=== PATIENT | male | born 1970 | race Two or more races ===

== ENCOUNTER 2024-07-25 15:37 | Emergency (ER) | payer MEDICAID, SELFPAY ==
[2024-07-25 15:55] VITALS: BP 106/74; PULSE 71; RESP 18; TEMP 36.6; O2SAT 95; BMI 36.2
--- NOTE | 2024-07-25 16:06 | PD.EDRME ---
Rapid Medical Screening Exam RME Arrival date/time: 07/25/24 15:37 53-year-old male presents to the emergency department today for complaint of elevated blood sugar and generalized fatigue Chief Complaint: Recheck/Abnormal Lab/Rx Vital signs: Vital Signs Temperature 97.8 F 07/25/24 15:55 Pulse Rate 71 07/25/24 15:55 Respiratory Rate 18 07/25/24 15:55 Blood Pressure 106/74 07/25/24 15:55 Pulse Oximetry (%) 95 07/25/24 15:55 Oxygen Delivery Method Room Air 07/25/24 15:55
[2024-07-25 16:41] LABS: Collection Type, Urine Clean Catch; Squamous Epithelial Cell,Urine 0 /hpf (0-5)
[2024-07-25 16:45] LABS: Base Excess, Venous 5 (-3-3); O2 Saturation, Venous 58 % (96-97); PCO2, Venous 44 mmHg (36-56); PO2, Venous 28 mmHg (15-58); pH, Venous 7.44 (7.33-7.66)
[2024-07-25 16:48] LABS: Basophils % (Auto) 0 % (0-2.5); Eosinophils % (Auto) 0 % (0-10); Hematocrit 47.4 % (41.0-53.0); Hemoglobin 15.4 g/dL (13.5-16.0); Immature Granulocytes % (Auto) 0 % (0-0); Immature Granulocytes Auto 0.05 Thou/mm3 (0.00-0.00); Lymphocytes # (Auto) 1.5 Thou/mm3 (1.0-4.8); Lymphocytes % (Auto) 12 % (10-50); Mean Corpuscular HGB Conc 32.5 g/dl (31.0-37.0); Mean Corpuscular Hemoglobin 27.8 pg (25.0-35.0); Mean Corpuscular Volume 86 fL (80-100); Monocytes # (Auto) 0.8 Thou/mm3 (0.0-0.8); Monocytes % (Auto) 7 % (0-12); Neutrophils # (Auto) 9.4 Thou/mm3 (1.8-7.7); Neutrophils % (Auto) 80 % (37-80); Nucleated Red Blood Cell % 0 /100 WBC (0); Platelet Count 181 Thou/mm3 (140-440); RDW Standard Deviation 48.1 fL (35.1-43.9); Red Blood Count 5.54 Miln/mm3 (4.50-5.90); White Blood Count 11.8 Thou/mm3 (3.8-10.6)
[2024-07-25 16:57] LABS: Glucose Estimated Average 252 mg/dL (80-131); Hemoglobin A1C 10.4 % Hgb (4.8-6.0)
[2024-07-25 17:18] LABS: Bilirubin,Urine Negative (Negative); Blood,Urine Negative (Negative); Clarity,Urine Clear (Clear/Hazy); Color,Urine Colorless (Lt Yel-Yel); Glucose, Urine 4+ (Negative); Ketones,Urine Negative (Negative); Leukocyte Esterase,Urine Negative (Negative); Nitrite,Urine Negative (Negative); PH,Urine 6.5 (5.0-7.0); Protein,Urine Negative (Neg - Trace); RBC,Urine 2 /hpf (0-3); Specific Gravity,Urine 1.034 (1.001-1.035); Urobilinogen,Urine Negative mg/dL (0.0-1.0); WBC,Urine 1 /hpf (0-5)
[2024-07-25 17:21] LABS: Alanine Aminotransferase 21 U/L (10-49); Albumin, Serum 4.5 gm/dL (3.5-5.0); Albumin/Globulin Ratio 1.7 (1.2-2.2); Alkaline Phosphatase 132 U/L (46-116); Anion Gap 8 (7-16); Aspartate Amino Transferase 13 U/L (0-34); BUN/Creatinine Ratio 8 Ratio (12-20); Bilirubin,Total 0.9 mg/dL (0.3-1.2); Blood Urea Nitrogen 13 mg/dL (9-23); Calcium 9.6 mg/dL (8.3-10.6); Calcium (Corrected) 9.6 mg/dL (8.5-10.1); Carbon Dioxide 31.1 mMol/L (20.0-31.0); Chloride 92 mMol/L (98-107); Creatinine (Component) 1.6 mg/dL (0.6-1.3); Estimated Creatinine Clearance 64.9 mL/min (>60); Globulin 2.7 gm/dL (2.3-3.5); Magnesium 2.2 mg/dL (1.6-2.6); Osmolality,Calculated 290 (275-295); Potassium 3.4 mMol/L (3.4-5.1); Sodium 131 mMol/L (136-145); Total Protein 7.2 gm/dL (5.7-8.2); Troponin I < 0.020 ng/mL (0.0-0.045); eGFR 51 See Note
[2024-07-25 17:25] LABS: Glucose 599 mg/dL (74-106)
[2024-07-25 18:15] LABS: Beta Hydroxybutyrate 0.2 mmol/L (<0.6)
--- NOTE | 2024-07-25 21:20 | PD.EDRECHK ---
ED Recheck Abnl Lab Rx-RME/HPI General Chief Complaint: Recheck/Abnormal Lab/Rx Stated Complaint: Blood sugar high, tired Time Seen by Provider: 07/25/24 18:11 Arrival date/time: 07/25/24 15:37 RME / HPI RME / HPI narrative: 53-year-old male patient with significant history of hypertension diabetes mellitus, came in for evaluation regarding elevated blood sugar. Patient's been having worsening hyperglycemia, associated with generalized body weakness, dry mouth and increase urination. Patient was started on Mounjaro 2 weeks ago and since then has been having the symptoms. Patient denies any vomiting denies any abdominal pain denies any other complaints. Patient's workup was significant for 11.8 leukocytosis, blood sugar of 599, with no sign of DKA. Related Data Home Medications ?Medication ?Instructions ?Recorded ?Confirmed hydrochlorothiazide 25 mg tablet 50 mg PO QAM #0 tabs 09/18/16 09/25/22 Held on 09/25/22. Instructions: Resume on 10/05/22. Hold until seeing primary care physician blood sugar diagnostic (True 08/19/20 08/19/20 Metrix Glucose Test Strip) amlodipine 10 mg tablet 10 mg PO QDAY 09/25/22 09/25/22 atorvastatin 40 mg tablet (Lipitor) 40 mg PO HS 09/25/22 09/25/22 axitinib 1 mg tablet (Inlyta) 1 mg PO BID 09/25/22 09/25/22 Held on 09/25/22. Instructions: Resume on 10/05/22. Please follow up with Oncology as soon as possible as this medication may be the cause of kidney injury losartan 100 mg tablet 100 mg PO QDAY 09/25/22 09/25/22 Held on 09/25/22. Instructions: Resume on 10/05/22. Hold until seeing Primary care physician metoprolol succinate 100 mg 100 mg PO QDAY 09/25/22 09/25/22 capsule sprinkle, ext. release 24 hr semaglutide 1 mg/dose (2 mg/1.5 1 mg subcut QWEEK 09/25/22 09/25/22 mL) subcutaneous pen injector ([employer] [facility]) Allergies Allergy/AdvReac Type Severity Reaction Status Date / Time Sulfa (Sulfonamide Allergy Mild Rash Verified 07/25/24 15:39 Antibiotics) Review of Systems Review of Systems Narrative Review of Systems: Review of system reviewed and within normal limits except mentioned in HPI ED Exam Narrative Physical exam: VITAL SIGNS: Reviewed. GENERAL APPEARANCE: Alert and interactive, follows commands, no acute distress, HEAD AND FACE: Non-traumatic. ENT: PERRL, pink conjunctivitis, eyelid no trauma, Mucous membrane moist. NECK: Supple, nontender, no nuchal rigidity. CHEST: No tenderness, no crepitus, no paradoxical movement, no retractions. LUNGS: Clear, well ventilated, symmetric, no rales, no wheezing, no ronchi, no stridor, good breath sounds bilaterally. HEART: Regular rate, regular rhythm, no murmur, no gallops. ABDOMEN: Soft, positive bowel sounds, nondistended, no guarding, nontender, no rebound, no masses, RECTAL: Deferred. GENITAL: Deferred. NEUROLOGICAL: Gross motor function intact sensory function intact, Appropriate for age. MUSCULOSKELETAL: low back nontender, full range of motion. EXTREMITIES: Nontender, full range of motion. SKIN: Color pink, dry, no rash, no lacerations, no abrasions, no contusions. LYMPHATICS: Deferred. Course Quality Measures none Orders Category Date Time Status Insert IV NOW Care 07/25/24 21:57 Completed A1C [Glycohemoglobin w (eAG)] Stat Lab 07/25/24 16:26 Completed Beta Hydroxybutyrate Stat Lab 07/25/24 16:26 Completed CBC Stat Lab 07/25/24 16:26 Completed Comprehensive Metabolic Panel Stat Lab 07/25/24 16:26 Completed Magnesium Stat Lab 07/25/24 16:26 Completed Troponin I Stat Lab 07/25/24 16:26 Completed Urinalysis Stat Lab 07/25/24 16:14 Completed VBG [Venous Blood Gas] Stat Lab 07/25/24 16:26 Completed Sodium Chloride 0.9% 1000 ml [Ns] 1,000 ml Med 07/25/24 20:04 Discontinued IV 999 mls/hr Sodium Chloride 0.9% 1000 ml [Ns] 1,000 ml Med 07/25/24 20:05 Discontinued IV 999 mls/hr Vital Signs Vital signs: Vital Signs Temperature 97.8 F 07/25/24 15:55 Pulse Rate 71 07/25/24 15:55 Respiratory Rate 18 07/25/24 15:55 Blood Pressure 106/74 07/25/24 15:55 Pulse Oximetry (%) 95 07/25/24 15:55 Oxygen Delivery Method Room Air 07/25/24 15:55 Recheck / Abnormal Lab / Rx MDM Narrative MDM Narrative:: 53-year-old male patient with significant history of hypertension diabetes mellitus, came in for evaluation regarding elevated blood sugar. Patient's been having worsening hyperglycemia, associated with generalized body weakness, dry mouth and increase urination. Patient was started on Mounjaro 2 weeks ago and since then has been having the symptoms. Patient denies any vomiting denies any abdominal pain denies any other complaints. Patient's CBC came back unremarkable. CMP showed blood sugar of 599 with no sign of diabetic acidosis. Creatinine 1.6. Rest of the labs unremarkable. No UTI. Patient received 2 L IV fluids, repeat blood sugar was noted to be 431 prior to discharge. Patient wanted to go home, does not want any other medication. Patient told me that he had diabetic medication at home. He is not having any symptoms prior to discharge. Patient data External records reviewed:: None Clinical information provided by:: patient Social determinants that could affect healthcare access:: none Patient has the following chronic illnesses:: Diabetes mellitus How is presenting disease/condition affected by chronic disease/condition?: exacerbated by Evaluation data The following diagnostics were reviewed and interpreted by me:: lab results and radiology exam(s) Lab and/or radiology exams considered but not ordered:: None Interpretation Summary: None Medications / Prescriptions Medications or Prescriptions considered but not ordered:: None Medication administrations:: Medication Administration History Discontinued Medications Sodium Chloride (Ns) 1,000 mls @ 999 mls/hr IV .Q1H1M ONE Stop: 07/25/24 21:04 Last Infusion: 07/25/24 22:52 Dose: Infused Documented By: Admin: 07/25/24 22:05 Dose: 999 mls/hr Documented By: BD Sodium Chloride (Ns) 1,000 mls @ 999 mls/hr IV .Q1H1M ONE Stop: 07/25/24 21:05 Last Infusion: 07/25/24 22:53 Dose: Infused Documented By: Admin: 07/25/24 22:05 Dose: 999 mls/hr Documented By: BD IV fluids 2 L Consultations Consultation(s) initiated? (list below): No Diagnosis Recheck Differential Diagnosis: other (Dehydration, hyperglycemia, diabetic ketoacidosis) Most likely diagnosis given after review of the tests above:: Hyperglycemia secondary to diabetes mellitus type 2 Admission Indicated Admission indicated?: not indicated Admission Request Was there a request for admission?: No Disposition Plan Disposition Plan: Discharge Discharge Attestation Discharge Attestation: The patient and all family members were given an opportunity to ask questions and understood the discharge instructions. Discharge instructions specifically effects, indications for sooner follow up or return to the emergency department, and the expected course of current diagnosis. Patient condition: Stable Discharge Plan Plan Patient Disposition: HOME (Self Care) Discharge Disposition comment: Stable Prescriptions/Referrals Prescriptions/Med Rec: No Action hydrochlorothiazide 25 MG tablet 50 mg PO QAM Qty: 0 (DME) True Metrix Glucose Test Strip Strip Patient Comments: CHECK BLOOD SUGAR THREE TIMES DAILY FOR DIABETES Rx Instructions: test 3 times a day atorvastatin [Lipitor] 40 mg Tablet 40 mg PO HS amlodipine 10 mg Tablet 10 mg PO QDAY losartan 100 mg Tablet 100 mg PO QDAY Inlyta 1 mg Tablet 1 mg PO BID Ozempic 1 mg/dose (2 mg/1.5 mL) Pen Injector 1 mg SUBCUT QWEEK metoprolol succinate 100 mg Capsule,Sprinkle,Er 24hr 100 mg PO QDAY Referrals: Shawanda Marcelo FNP [Primary Care Provider] - In 1 week Problem List Clinical Impression: Hyperglycemia due to type 2 diabetes mellitus Patient/Caregiver Discharge Instructions Discharge Activity: activity as tolerated Education Materials: Managing Type 2 Diabetes Additional Instructions: Thank you for the opportunity for serving you today. You are stable for discharged . You are advised to: Follow-up with your PCP in 1 to 2 days Return to ED for worsening of symptoms Increase oral fluids Watch what you are eating, decrease intake of carbohydrates Print Language: Danish Stand Alone Forms: Graciela Award Info., Patient Portal Info Letter ASHLEIGH/REINA Supervising Physician MUKESH Supervising Physician: MD Valencia
[2024-07-25] MEDS: SODIUM CHLORIDE 0.9% 1000 ML 1,000 ML 999 ML IV ×2 (22:05)
== END 2024-07-25 23:50 | disposition home or self-care (01) ==
PROVIDERS: Nurse Practitioner Primary Care; Emergency Provider Emergency Medicine; PCP Student in an Organized Health Care Education/Training Program
DX: E11.65 Type 2 diabetes mellitus with hyperglycemia (principal); Z79.85 Long-term (current) use of injectable non-insulin antidiabetic drugs
CPT/HCPCS: 36415; 80053; 81001; 82010; 82803; 83036; 83735; 84484; 85025; 96360; 99284; J7030

== ENCOUNTER 2025-01-07 09:02 | Emergency (ER) | payer MEDICAID, SELFPAY ==
[2025-01-07 09:38] VITALS: BP 154/102; PULSE 75; RESP 18; TEMP 36.9; O2SAT 96; BMI 35.4
--- NOTE | 2025-01-07 09:53 | XR_ITS ---
Examination: Abdomen sonogram, Limited Date and time of exam: January 07, 2025, 1105 hours INDICATIONS: Right upper abdominal pain beginning 3 days ago Technique: Real-time ricks scale transabdominal sonographic images of the upper abdomen obtained. Findings: Normal gallbladder Normal common bile duct 0.4 cm Pancreatic head 3.4 cm Liver 16.5 cm fatty infiltration Normal hepatopetal portal venous flow Patent IVC IMPRESSION: Normal gallbladder
--- NOTE | 2025-01-07 09:53 | XR_ITS ---
Examination: CT abdomen and pelvis without contrast. Coronal 3-D reconstructions. Sagittal 2-D reconstructions. Date and time of exam: January 07, 2025, 0959 hours, comparison January 30, 2023 INDICATIONS: Onset right-sided flank pain today. CTDI: vol (mGy): 10.1 DLP: (mGycm): 657 Technique: Axial images of the abdomen have been obtained, 3 mm slice thickness Intravenous contrast material has not been administered. Low dose protocols were performed. One or more of the following dose reduction techniques were used; automated exposure control, adjustment of the mA and/or KV according to patient size, use of iterative reconstruction technique. Findings: New 5 mm pulmonary nodule right lower lobe No visualized liver or splenic lesion No gallstones No pancreatic or adrenal mass Partial left nephrectomy No solid renal mass lesion No hydronephrosis or ureteral calculi Aorta normal size Absent appendix No bowel obstruction Contracted urinary bladder Mild prostatomegaly Moderate osteopenia IMPRESSION: New 5 mm pulmonary nodule right lower lobe, recommend ELECTIVE CT chest without contrast follow-up
--- NOTE | 2025-01-07 09:54 | PD.EDRME ---
Rapid Medical Screening Exam RME Arrival date/time: 01/07/25 09:02 54-year-old male presents to the Emergency Department of complaint of abdominal pain Chief Complaint: Abdominal Pain Vital signs: Vital Signs Temperature 98.4 F 01/07/25 09:38 Pulse Rate 75 01/07/25 09:38 Respiratory Rate 18 01/07/25 09:38 Blood Pressure 154/102 H 01/07/25 09:38 Pulse Oximetry (%) 96 01/07/25 09:38 Oxygen Delivery Method Room Air 01/07/25 09:38 Vital signs reviewed by provider: Yes Exam: On exam patient well-appearing does not appear ill or toxic Clinical Impression: Labs imaging obtained
[2025-01-07 10:25] LABS: Collection Type, Urine Clean Catch
[2025-01-07 10:42] LABS: Basophils # (Auto) 0.0 Thou/mm3 (0.0-0.2); Basophils % (Auto) 0 % (0-2.5); Eosinophils # (Auto) 0.1 Thou/mm3 (0.0-0.5); Eosinophils % (Auto) 1 % (0-10); Hematocrit 49.1 % (41.0-53.0); Hemoglobin 15.9 g/dL (13.5-16.0); Immature Granulocytes Auto 0.05 Thou/mm3 (0.00-0.00); Lymphocytes # (Auto) 2.2 Thou/mm3 (1.0-4.8); Lymphocytes % (Auto) 17 % (10-50); Mean Corpuscular HGB Conc 32.4 g/dl (31.0-37.0); Mean Corpuscular Hemoglobin 28.7 pg (25.0-35.0); Mean Corpuscular Volume 89 fL (80-100); Monocytes # (Auto) 0.9 Thou/mm3 (0.0-0.8); Monocytes % (Auto) 7 % (0-12); Neutrophils # (Auto) 9.9 Thou/mm3 (1.8-7.7); Neutrophils % (Auto) 75 % (37-80); Nucleated Red Blood Cell # 0.00 Thou/mm3 (0.00-0.00); Nucleated Red Blood Cell % 0 /100 WBC (0); Platelet Count 171 Thou/mm3 (140-440); RDW Standard Deviation 50.1 fL (35.1-43.9); Red Blood Count 5.54 Miln/mm3 (4.50-5.90); White Blood Count 13.1 Thou/mm3 (3.8-10.6)
[2025-01-07 10:46] LABS: Bilirubin,Urine Negative (Negative); Blood,Urine Negative (Negative); Clarity,Urine Clear (Clear/Hazy); Color,Urine Lt-Yellow (Lt Yel-Yel); Culture Indicated,Urine Not Indicated; Glucose, Urine 4+ (Negative); Ketones,Urine Negative (Negative); Leukocyte Esterase,Urine Negative (Negative); Nitrite,Urine Negative (Negative); PH,Urine 6.5 (5.0-7.0); Protein,Urine Trace (Neg - Trace); RBC,Urine 2 /hpf (0-3); Specific Gravity,Urine 1.035 (1.001-1.035); Squamous Epithelial Cell,Urine < 1 /hpf (0-5); Urobilinogen,Urine Negative mg/dL (0.0-1.0); WBC,Urine 1 /hpf (0-5)
[2025-01-07 11:02] LABS: Alanine Aminotransferase 23 U/L (10-49); Albumin, Serum 4.9 gm/dL (3.5-5.0); Albumin/Globulin Ratio 1.7 (1.2-2.2); Alkaline Phosphatase 90 U/L (46-116); Anion Gap 11 (7-16); Aspartate Amino Transferase 17 U/L (0-34); BUN/Creatinine Ratio 9 Ratio (12-20); Bilirubin,Total 0.6 mg/dL (0.3-1.2); Blood Urea Nitrogen 9 mg/dL (9-23); Calcium 9.3 mg/dL (8.3-10.6); Calcium (Corrected) 9.3 mg/dL (8.5-10.1); Carbon Dioxide 29.3 mMol/L (20.0-31.0); Chloride 100 mMol/L (98-107); Creatinine (Component) 1.0 mg/dL (0.6-1.3); Estimated Creatinine Clearance 101.5 mL/min (>60); Globulin 2.9 gm/dL (2.3-3.5); Glucose 149 mg/dL (74-106); Lipase 662 U/L (12-53); Osmolality,Calculated 281 (275-295); Potassium 3.0 mMol/L (3.4-5.1); Sodium 140 mMol/L (136-145); Total Protein 7.8 gm/dL (5.7-8.2); eGFR > 60 See Note
--- NOTE | 2025-01-07 12:14 | PD.EDABDPN ---
ED Abdominal Pain RME/HPI General Chief Complaint: Abdominal Pain Stated complaint: R) SIDE ABD PAIN 09/14 Time seen by provider: 01/07/25 11:18 Arrival date/time: 01/07/25 09:02 RME / HPI RME / HPI narrative: 01/07/25 09:02 54-year-old male presents to the Emergency Department of complaint of abdominal pain DR. CAMACHO MAIN ED EVALUATION: Patient presents with RUQ abdominal pain ongoing x 24 hours progressively increasing in intensity, described as sharp with occasional radiation to the left flank. Denies N/F/V/C. No urinary F/U/D. PMH: Type II DM, Recurrent renal carcinoma, HTN PSH: Partial left nephrectomy Allergies: Sulfa Social: Negative Exam: On exam patient well-appearing does not appear ill or toxic Impression: Labs imaging obtained Related Data Home Medications ?Medication ?Instructions ?Recorded ?Confirmed hydrochlorothiazide 25 mg tablet 50 mg PO QAM #0 tabs 09/18/16 09/25/22 Held on 09/25/22. Instructions: Resume on 10/05/22. Hold until seeing primary care physician blood sugar diagnostic (True 08/19/20 08/19/20 Metrix Glucose Test Strip) amlodipine 10 mg tablet 10 mg PO QDAY 09/25/22 09/25/22 atorvastatin 40 mg tablet (Lipitor) 40 mg PO HS 09/25/22 09/25/22 axitinib 1 mg tablet (Inlyta) 1 mg PO BID 09/25/22 09/25/22 Held on 09/25/22. Instructions: Resume on 10/05/22. Please follow up with Oncology as soon as possible as this medication may be the cause of kidney injury losartan 100 mg tablet 100 mg PO QDAY 09/25/22 09/25/22 Held on 09/25/22. Instructions: Resume on 10/05/22. Hold until seeing Primary care physician metoprolol succinate 100 mg 100 mg PO QDAY 09/25/22 09/25/22 capsule sprinkle, ext. release 24 hr semaglutide 1 mg/dose (2 mg/1.5 1 mg subcut QWEEK 09/25/22 09/25/22 mL) subcutaneous pen injector (Ozempic) Previous Rx's ?Medication ?Instructions ?Recorded esomeprazole magnesium 20 mg 20 mg PO QDAY 30 days #30 caps 01/07/25 capsule,delayed release hyoscyamine sulfate 0.125 mg 0.125 mg PO TID PRN cramping #10 01/07/25 tablet (Levsin) tabs promethazine 12.5 mg tablet 12.5 mg PO TID PRN nausea and 01/07/25 vomiting #14 tabs Allergies Allergy/AdvReac Type Severity Reaction Status Date / Time Sulfa (Sulfonamide Allergy Mild Rash Verified 01/07/25 09:05 Antibiotics) Review of Systems Review of Systems Systems Reviewed: All systems reviewed, normal except as documented Past Medical History Past Medical History CARDIAC: Positive Hypertension GENITOURINARY: Positive Genitourinary Disorders and Renal Disease ENDOCRINE: Positive Diabetes Mellitus Type 2 OTHER HISTORY: Positive Chemotherapy, Radiation Therapy and Cancer Family History FAMILY HISTORY: Positive Family Cancer and Family Surgery Surgical History SURGICAL: Positive Nephrectomy ED Exam Narrative Physical exam: GEN. APPEARANCE: The patient is alert awake oriented X-3 under no distress, lying down comfortably, does not look ill/toxic. Patient has good eye contact. Patient is cooperative. VITALS: All vitals were reviewed and the pulse ox is 96%, which is normal according to my interpretation HEENT: Normocephalic, atraumatic and nontender. Pupils are equal and reactive. Oral mucosa is moist. NECK: Supple, nontender, no meningismus, no JVD. There is no thyromegaly and no lymphadenopathy. CHEST: Nontender on palpation no deformity and no crepitus. CARDIOVASCULAR: Heart regular rhythm, no murmur or gallop rub or extra beats. LUNGS: Clear to auscultation bilaterally with symmetrical chest rise. No laboring tachypnea or wheezing. No intercostal subcostal retraction. No rales and no rhonchi. ABDOMEN: Soft, obese, focal tenderness to the RUQ, no guarding. Peritoneal findings. There are no abnormal masses palpated. No pulsatile masses or bruits. Active and normal bowel sounds. EXTREMITIES: Normal inspection and palpation. No edema. No cyanosis. Patient is able to move all 4 extremities well SKIN: Warm and dry, no rashes noted. MUSCULOSKELETAL: No lumbar or midline bony tenderness. There is no CVA tenderness. No paraspinal muscle spasm or tenderness. NEURO: Cranial nerves II through XII grossly intact. There are no focal neurologic deficits noted. GCS is 15 PSYCHIATRIC: Patient is in normal mood and affect, cooperative. LYMPHATICS: No major lymphadenopathy noted. Course Quality Measures none Orders Category Date Time Status CT abdomen pelvis wo con Stat Exams 01/07/25 09:53 Completed US gall bladder Stat Exams 01/07/25 09:53 Completed CBC Stat Lab 01/07/25 10:20 Completed Comprehensive Metabolic Panel Stat Lab 01/07/25 10:20 Completed Lipase Stat Lab 01/07/25 10:20 Completed UA, C/S IF [Urinalysis, C/S if Indicated] Stat Lab 01/07/25 10:15 Completed Vital Signs Vital signs: Vital Signs Temperature 98.4 F 01/07/25 09:38 Pulse Rate 75 01/07/25 09:38 Respiratory Rate 18 01/07/25 09:38 Blood Pressure 154/102 H 01/07/25 09:38 Pulse Oximetry (%) 96 01/07/25 09:38 Oxygen Delivery Method Room Air 01/07/25 09:38 Abdominal Pain MDM MDM Narrative MDM Narrative:: Scribe Attestation: INicole, radha scribing for and in the presence of Dr. Mercer. Provider Notation: Although this document has been carefully reviewed, there may still be some phonetic and other typographical errors. These errors are purely grammatical due to imperfections in the software program and should not be construed in any way to compromise the substance of the patient's medical care during this visit. Patient presents with RUQ abdominal pain ongoing x 24 hours progressively increasing in intensity, described as sharp with occasional radiation to the left flank. Denies N/F/V/C. Please see PE findings. Laboratory markers, including CBC and serum chemistries were unremarkable, with the exception of mildly elevated lipase in the 500's. Gallbladder US and CT were unremarkable. Patient remained relatively asymtpomatic throughout ED course. Further inquiry indicated patient has been on Mounjaro, a GLP-1 drug, for approximately 2 months. Will discontinue Mounjaro at this time. Reccomend close f/u with PMD for repeat lab markers. Patient will be placed on antacid, antispomatic, along with anit-emetic, with close f/u anticipated. Final diagnosis at this time adverse medication reaction to Mounjaro. Patient data External records reviewed:: [facility] previous records (Reviewed prior ED records from 07/25/24. Patient was seen for Hyperglycemia due to type 2 diabetes mellitus.) Clinical information provided by:: patient Social determinants that could affect healthcare access:: none Patient has the following chronic illnesses:: Hypertension, Renal Disease, Diabetes Mellitus Type 2 How is presenting disease/condition affected by chronic disease/condition?: exacerbated by Evaluation data The following diagnostics were reviewed and interpreted by me:: lab results and radiology exam(s) Lab and/or radiology exams considered but not ordered:: None Interpretation Summary: RADIOLOGY Gall Bladder US: Findings: Normal gallbladder Normal common bile duct 0.4 cm Pancreatic head 3.4 cm Liver 16.5 cm fatty infiltration Normal hepatopetal portal venous flow Patent IVC IMPRESSION: Normal gallbladder Abdomen/Pelvis CT: Findings: New 5 mm pulmonary nodule right lower lobe No visualized liver or splenic lesion No gallstones No pancreatic or adrenal mass Partial left nephrectomy No solid renal mass lesion No hydronephrosis or ureteral calculi Aorta normal size Absent appendix No bowel obstruction Contracted urinary bladder Mild prostatomegaly Moderate osteopenia IMPRESSION: New 5 mm pulmonary nodule right lower lobe, recommend ELECTIVE CT chest without contrast follow-up Medications / Prescriptions Medications or Prescriptions considered but not ordered:: None Medication administrations:: See above if any Consultations Consultation(s) initiated? (list below): No Diagnosis Differential diagnosis abdominal pain: abdominal pain, calculus of kidney, constipation, diverticulitis, gastroenteritis, pancreatitis and other (Cholecystitis, Cholelthiasis) Most likely diagnosis given after review of the tests above:: Adverse medication reaction to Mounjaro Admission Indicated Admission indicated?: not indicated Explain why admission is indicated or not indicated:: Patient does not meet admission criteria Admission Request Was there a request for admission?: No Disposition Plan Disposition Plan: Discharge Discharge Attestation Discharge Attestation: The patient and all family members were given an opportunity to ask questions and understood the discharge instructions. Discharge instructions specifically effects, indications for sooner follow up or return to the emergency department, and the expected course of current diagnosis. Patient condition: Stable Discharge Plan Plan Patient Disposition: HOME (Self Care) Discharge Disposition comment: stable Prescriptions/Referrals Prescriptions/Med Rec: New esomeprazole magnesium 20 mg capsule,delayed release(DR/EC) 20 mg PO QDAY 30 Days Qty: 30 0RF promethazine 12.5 mg tablet 12.5 mg PO TID PRN (Reason: nausea and vomiting) Qty: 14 0RF hyoscyamine sulfate [Levsin] 0.125 mg tablet 0.125 mg PO TID PRN (Reason: cramping) Qty: 10 0RF No Action hydrochlorothiazide 25 MG tablet 50 mg PO QAM Qty: 0 (DME) True Metrix Glucose Test Strip Strip Patient Comments: CHECK BLOOD SUGAR THREE TIMES DAILY FOR DIABETES Rx Instructions: test 3 times a day atorvastatin [Lipitor] 40 mg Tablet 40 mg PO HS amlodipine 10 mg Tablet 10 mg PO QDAY losartan 100 mg Tablet 100 mg PO QDAY Inlyta 1 mg Tablet 1 mg PO BID Ozempic 1 mg/dose (2 mg/1.5 mL) Pen Injector 1 mg SUBCUT QWEEK metoprolol succinate 100 mg Capsule,Sprinkle,Er 24hr 100 mg PO QDAY Referrals: Markos ([facility]),REINA Zheng [Primary Care Provider] - In 1 week Problem List Clinical Impression: Adverse drug reaction Patient/Caregiver Discharge Instructions Print Language: Dutch Stand Alone Forms: Graciela Award Info., Patient Portal Info Letter
== END 2025-01-07 15:16 | disposition home or self-care (01) ==
PROVIDERS: Nurse Practitioner Primary Care; Emergency Provider Emergency Medicine; PCP Nurse Practitioner Family
DX: R10.11 Right upper quadrant pain (principal); T38.3X5A Adverse effect of insulin and oral hypoglycemic [antidiabetic] drugs, initial encounter; R91.1 Solitary pulmonary nodule; E11.9 Type 2 diabetes mellitus without complications; R10.A1 Flank pain, right side
CPT/HCPCS: 36415; 74176; 76705; 80053; 81001; 83690; 85025; 99283